=== PATIENT | male | born 1960 | race African-American/Black ===

== ENCOUNTER 2017-11-25 10:41 | Day surgery (SDC) | payer OTHER ==
[~2017-11-25] VITALS: Ht 174 cm; Wt 72.6 kg
[~2017-11-25 10:41] MED LIST: ASPIR-LOW81 MG PO; NITROGLYCERIN0.4 MG SL
[2017-11-25] MEDS ORDERED: METHADONE HCL40 MG PO (11:12)
== END 2017-11-25 17:27 | disposition home or self-care (01) ==
LOC: CATH 10:41
DX: I25.10 Atherosclerotic heart disease of native coronary artery without angina pectoris (principal); I25.82 Chronic total occlusion of coronary artery; E78.5 Hyperlipidemia, unspecified; F17.200 Nicotine dependence, unspecified, uncomplicated; F14.11 Cocaine abuse, in remission; Z79.891 Long term (current) use of opiate analgesic; G89.29 Other chronic pain
CPT/HCPCS: 85347; 93005; C1769; C1887; J1644; J2250; J3010; J7040